=== PATIENT | male | born 1970 | race Caucasian/White ===

== ENCOUNTER 2017-07-15 18:36 | Emergency (ER) | payer BC ==
[~2017-07-15] VITALS: Ht 185.4 cm; Wt 82.6 kg
[2017-07-15 18:40] VITALS: BP 155/103
--- NOTE | 2017-07-15 19:19 | NUR ---
received report from GIANNA Thompson for kaycee.
--- NOTE | 2017-07-15 19:20 | NUR ---
PAC VALENTIN AT BEDSIDE FOR LAC REPAIR.
[2017-07-15] MEDS ORDERED: LIDOCAINE 2% 20 ML MDV ONE (19:22)
[2017-07-15] MEDS ORDERED: BENZOIN COMPOUND TINCT 60 ML BOTTLE MM ONE (20:00)
== END 2017-07-15 20:27 | disposition home or self-care (01) ==
LOC: ER 18:37
DX: S01.81XA Laceration without foreign body of other part of head, initial encounter (principal); I10 Essential (primary) hypertension; W22.03XA Walked into furniture, initial encounter; Y93.02 Activity, running; Y92.89 Other specified places as the place of occurrence of the external cause; Y99.8 Other external cause status
CPT/HCPCS: 12052; 99284; A4606; A6402; J3490; Z7610